=== PATIENT | female | born 1950 | race Caucasian/White ===

== ENCOUNTER → 2018-11-06 | Outpatient (CLI) | payer MEDICARE ==
[~2018-11-06] MED LIST: ASPI81CH PO; C-10001000 M1 PO; Elemental Calc600 MG PO; MAGNESIUM250 MG PO; Multiple Vitam1 EAC1 PO; VITAMIN D34000 UNIT PO
== END | disposition home or self-care (01) ==
LOC: PLD 10:12 → LAB SHORT 10:12
DX: D48.5 Neoplasm of uncertain behavior of skin (principal)
CPT/HCPCS: 88305

== ENCOUNTER → 2019-04-26 | Outpatient (CLI) | payer MEDICARE ==
[2019-04-26 10:35] LABS: Source, Urine Clean Catch
[2019-04-26 11:00] LABS: Appearance, Urine Clear (Clear); Bilirubin, Urine Neg (Neg); Blood, Urine 1+ (Neg); Color, Urine Yellow (P-Yellow); Glucose Qualitative, Urine Neg (Neg); Ketones, Urine Neg (Neg); Leukocyte Esterase, Urine 3+ (Neg); Nitrite, Urine Neg (Neg); Protein, Urine Neg (Neg); Urobilinogen, Urine NORM (Normal)
[2019-04-26 11:20] LABS: Bacteria Many /hpf; Red Blood Cells, Urine 0-2 /hpf (0-2); Squamous Epithelial Cells Rare /hpf (Few); White Blood Cells, Urine 25-50 /hpf (0-5)
== END ==
LOC: OLS 10:33 → LAB SHORT 10:33
PROVIDERS: Internal Medicine
DX: R30.9 Painful micturition, unspecified (principal)
CPT/HCPCS: 81001; 87077; 87086; 87186

== ENCOUNTER → 2019-07-31 | Outpatient (CLI) | payer MEDICARE | END | disposition home or self-care (01) | LOC: LAB SHORT 09:40 → PLD 09:40 | DX: D48.5 Neoplasm of uncertain behavior of skin (principal) | CPT/HCPCS: 88305 ==

== ENCOUNTER → 2020-09-10 | Outpatient (CLI) | payer MEDICARE | LOC: LAB 07:33 → LAB SHORT 07:33 | DX: D48.5 Neoplasm of uncertain behavior of skin (principal); L43.9 Lichen planus, unspecified | CPT/HCPCS: 88305 ==

== ENCOUNTER → 2021-08-11 | Outpatient (CLI) | payer MEDICARE | END | disposition home or self-care (01) | LOC: LAB SHORT 11:09 → PLD 11:09 | DX: D48.5 Neoplasm of uncertain behavior of skin (principal) | CPT/HCPCS: 88305 ==

== ENCOUNTER 2021-11-04 08:12 | Day surgery (SDC) | payer MEDICARE ==
[~2021-11-04] VITALS: Ht 160 cm; Wt 55.6 kg
[2021-11-04] MEDS ORDERED: ALEN70 PO (08:49)
[2021-11-04] MEDS ORDERED: ESTRADIOL1 EAC2 TOP (08:50)
== END 2021-11-04 11:02 | disposition home or self-care (01) ==
LOC: ORSCSDS 08:12
PROVIDERS: Internal Medicine Gastroenterology
PROC: 0DJD8ZZ Inspection of Lower Intestinal Tract, Via Natural or Artificial Opening Endoscopic (ICD-10-PCS; principal; 2021-11-04 09:30)
DX: Z12.11 Encounter for screening for malignant neoplasm of colon (principal); K57.50 Diverticulosis of both small and large intestine without perforation or abscess without bleeding; Z83.71 Family history of colonic polyps; E83.119 Hemochromatosis, unspecified; K64.8 Other hemorrhoids; Z79.899 Other long term (current) drug therapy
CPT/HCPCS: J2250; J2405; J2704; J7120